=== PATIENT | female | born 1980 | race African-American/Black ===

== ENCOUNTER 2017-03-18 12:37 | Emergency (ER) | payer MEDICAID ==
[~2017-03-18] VITALS: Ht 162.6 cm; Wt 66.2 kg
[2017-03-18 14:16] LABS: Hemoglobin 10.1 g/dL (12.2-16.2); White Blood Cell 7.4 10^3/uL (4.4-10.8)
[2017-03-18 14:18] LABS: Hematocrit 32.7 % (36.0-46.0); Mean Corpuscular Hemoglobin 21.4 pg (28.0-32.0); Mean Corpuscular Hgb Conc. 30.9 g/dL (32.0-36.0); Mean Corpuscular Volume 69.2 fL (80.0-100.0); Platelet Count (auto) 260 10^3/uL (140-450); Red Blood Cells 4.72 10^6/uL (4.0-5.20)
[2017-03-18 14:24] LABS: Red Cell Distribution Width 35.4 % (11.8-14.3)
[2017-03-18 14:25] LABS: Band Neutrophils % (manual) 0; Basophils % (manual) 0 (0.0-2.0); Blast Cells 0; Eosinophils % (manual) 0 (0-7); Metamyelocytes % 0; Myelocytes % 0; Promyelocytes % 0; Reactive Lymphocytes 0
[2017-03-18 14:35] LABS: Lymphocytes % (manual) 9 (10.0-50.0); Monocytes % (manual) 4 (0-12)
[2017-03-18 14:37] LABS: Alanine Aminotransferase 22 U/L (13-56); Albumin 3.1 g/dL (3.4-5.0); Alkaline Phosphatase 63 U/L (45-117); Anion Gap 7 (5-15); Aspartate Aminotransferase 10 U/L (15-37); BUN/Creatinine Ratio 11.6; Bilirubin, Total 0.5 mg/dL (0.2-1.0); Blood Urea Nitrogen 5 mg/dL (7-18); Calcium 8.7 mg/dL (8.5-10.1); Carbon Dioxide 26 mmol/L (21-32); Chloride 104 mmol/L (98-107); GFR African American 212 mL/min; GFR Non-African American 176 mL/min; Glucose 88 mg/dL (74-106); Potassium 3.7 mmol/L (3.5-5.1); Sodium 137 mmol/L (136-145); Total Protein 8.5 g/dL (6.4-8.2)
[2017-03-18] MEDS ORDERED: IOHEXOL 300 MG/ML 100ML BOTTLE IJ ONE (14:38)
[2017-03-18 16:34] VITALS: BP 107/75
[2017-03-18 16:52] LABS: Urine Bacteria NONE SEEN /hpf (None Seen); Urine Blood 2+ /uL (Negative); Urine Mucus FEW (None Seen); Urine WBC 1 /hpf (0 - 5)
[2017-03-18 17:06] LABS: Urine Specific Gravity > 1.050 (1.001-1.035)
== END 2017-03-18 18:04 | disposition left against medical advice (07) ==
LOC: ER 12:37
DX: R07.9 Chest pain, unspecified (principal); R06.02 Shortness of breath; D25.9 Leiomyoma of uterus, unspecified; Z88.0 Allergy status to penicillin
CPT/HCPCS: 36415; 71010; 71260; 74177; 80053; 81001; 84484; 85007; 85027; 93005; 99285; Q9967